=== PATIENT | male | born 1990 | race Two or more races ===

== ENCOUNTER 2017-06-02 11:12 | Emergency (ER) | payer OTHER ==
[~2017-06-02] VITALS: Ht 170.2 cm; Wt 6.0 kg
[2017-06-02 13:19] VITALS: BP 110/69
== END 2017-06-02 18:49 | disposition left against medical advice (07) ==
LOC: ER 11:12
DX: R10.9 Unspecified abdominal pain (principal); Z53.21 Procedure and treatment not carried out due to patient leaving prior to being seen by health care provider